=== PATIENT | female | born 1970 | race Caucasian/White ===

== ENCOUNTER 2019-03-14 08:45 | Day surgery (SDC) | payer OTHER ==
[~2019-03-14] VITALS: Ht 172.7 cm; Wt 134.3 kg
--- NOTE | ~2019-03-14 | OR ---
[facility] [address], [place] [address] Draft DATE OF OPERATION: 03/14/2019 SURGEON: Iftikhar Zuniga MD PREOPERATIVE DIAGNOSES: Septal deformity, inferior turbinate hypertrophy causing nasal obstruction. POSTOPERATIVE DIAGNOSES: Septal deformity, inferior turbinate hypertrophy causing nasal obstruction. PROCEDURES: Septoplasty, cautery bilateral inferior turbinate submucosal. ANESTHESIA: General LMA; Abimael ISAACS. PREOPERATIVE HISTORY: Nazanin is a 49-year-old lady with a long history of nasal obstruction. She has difficulty using CPAP for her sleep apnea due to the nasal congestion and obstruction. She has tried nasal steroid sprays, appropriate medications without relief. Exam in the office has shown a septal deformity, inferior turbinate hypertrophy. She was taken to the operating room for the above-mentioned procedures. OPERATIVE PROCEDURE AND FINDINGS: After informed consent, the patient was taken to the operating room, placed in supine position where general LMA anesthesia was induced. The patient and procedure were verified. The patient received preoperative intravenous Ancef and intranasal oxymetazoline. Headlight speculum exam of the nasal cavity showed good decongestion of the inferior turbinates, a septal deformity with a spur inferiorly on the right, partially obstructive. Septal mucosa was injected with 1% lidocaine with epi. A total of 4 mL was used. The mucosa was elevated off the deviation on the right side of the septum. Deviated septal bone and cartilage were then excised with Luigi. The septum was medialized with a speculum. The airway was improved in this manner. The inferior turbinates were then cauterized with a long handle needle point cautery, multiple passes, starting on the right side medial and inferior surface of the inferior turbinate from the anterior most portion all the way back to the posterior. Excellent decongestion shrinkage of the turbinate was obtained in this manner. Minimal bleeding stopped afterwards. Same procedure on the left inferior turbinate. Packing was then placed. Equal amount of Merocel trimmed coated with Neosporin 1 piece each side tied PATIENT NAME: NAZANIN GIBBONS OPERATIVE REPORT DATE OF : 70 REPORT #: [id number] PHYSICIAN: IFTIKHAR ZUNIGA MD PCP: TRESA MOREIRA REPORT IS CONFIDENTIAL AND NOT TO BE RELEASED WITHOUT AUTHORIZATION [facility] [address] [place] [address] [place], [place] [address] Draft anteriorly over a pad. The pharynx was suctioned clear of blood and secretions. The patient was then awakened, extubated, transported to recovery room in good condition. No complications. BLOOD LOSS: Minimal. SPECIMEN: No specimen. DRAINS: No drains. PACKING: One piece of Merocel each nostril. Iftikhar Zuniga MD GC/AAMIR /[id number] Copies: ~ PATIENT NAME: NAZANIN GIBBONS OPERATIVE REPORT DATE OF : 70 REPORT #: [id number] PHYSICIAN: IFTIKHAR ZUNIGA MD PCP: TRESA MOREIRA REPORT IS CONFIDENTIAL AND NOT TO BE RELEASED WITHOUT AUTHORIZATION
[~2019-03-14 08:45] MED LIST: ALLER TEC; ATIVAN2 MG NG; ATORVASTATIN CA80 MG PO; AZELASTINE137 MCG/0. NAS; BUSPIRONE HCL5 MG PO; COQ-10100 MG PO; D3; DITROPAN XL10 MG PO; MAGNESIUM250 M1 PO; MONTELUKAST SOD10 MG PO; MULTIVITAMINS1 EAC7 PO; QVAR REDIHALE10.6 G1; VENTOLIN HFA18 GM INH; WELLBUTRIN XL150 MG PO
[2019-03-14] MEDS ORDERED: ALLER-TEC10 MG PO (09:18)
[2019-03-14] MEDS ORDERED: VITAMIN D32000 UNI1 PO (09:18)
--- NOTE | 2019-03-14 11:51 | NUR ---
03/14/19 1151 Ashley Nelson 1114 PT ARRIVED IN PACU NON RESPONSIVE TO NOXIOUS STIMULI WITH OPA IN PLACE. 1131 PT REACTIVE. OPA REMOVED. 1150 PT AWAKE AND TALKING TO STAFF. NO C/O'S.
[2019-03-14] MEDS ORDERED: KEFLEX500 MG PO (13:17)
[2019-03-14] MEDS ORDERED: NORCO 5-325 TA1 EACH PO (13:17)
--- NOTE | 2019-03-14 14:30 | NUR ---
1210: PATIENT BACK IN DAY SURGERY ROOM FROM PACU. DENIES PAIN. DENIES NAUSEA. NASAL PACKING IN PLACE IS CLEAN, DRY & INTACT. IV SITE WNL. SCDs ON. AT BEDSIDE. CALL LIGHT WITHIN REACH. GIVEN ICE WATER AND PUDDING. 1305: VS CHECKED. TOLERATED WATER AND PUDDING. DENIES PAIN. PATIENT ASSISTED UP TO BATHROOM BY OTHER RN. AT BEDSIDE. CALL LIGHT WITHIN REACH. 1340: PATIENT ASSISTED TO GET DRESSED BY . DISCHARGE INSTRUCTIONS GIVEN TO PATIENT AND . IV DC'D WNL. TIP INTACT. DRESSING APPLIED. PATIENT DISCHARGED TO HOME WITH VIA WHEELCHAIR.
== END 2019-03-14 13:40 | disposition home or self-care (01) ==
LOC: OPS 08:45 → DS 09:02 → OPS 10:30 → DS 10:30 → OPS 13:40
PROVIDERS: Otolaryngology
PROC: 095L7ZZ Destruction of Nasal Turbinate, Via Natural or Artificial Opening (ICD-10-PCS; principal; 2019-03-14 10:30)
PROC: 09SM0ZZ Reposition Nasal Septum, Open Approach (ICD-10-PCS; 2019-03-14 10:30)
DX: J34.2 Deviated nasal septum (principal); J34.3 Hypertrophy of nasal turbinates; I10 Essential (primary) hypertension; J45.909 Unspecified asthma, uncomplicated; G47.33 Obstructive sleep apnea (adult) (pediatric); F41.9 Anxiety disorder, unspecified; F32.9 Major depressive disorder, single episode, unspecified; E66.9 Obesity, unspecified; Z99.89 Dependence on other enabling machines and devices; Z88.8 Allergy status to other drugs, medicaments and biological substances; Z91.041 Radiographic dye allergy status; Z79.899 Other long term (current) drug therapy; Z68.41 Body mass index [BMI] 40.0-44.9, adult
CPT/HCPCS: J0131; J0690; J1100; J1885; J2250; J2405; J2704; J3010; J7121